=== PATIENT | male | born 1960 | race Caucasian/White ===

== ENCOUNTER → 2021-09-16 | Outpatient (CLI) | payer BC ==
[2021-09-16 18:32] LABS: Basophils # (A) 0.03 X 10*3/uL (0.00-0.10); Basophils % (A) 0.7 %; Eosinophils # (A) 0.34 X 10*3/uL (0.04-0.35); Eosinophils % (A) 7.6 %; HCT 45.4 % (39.6-50.0); HGB 15.9 g/dL (13.0-17.0); Lymphocytes # (A) 1.22 X 10*3/uL (0.90-5.00); Lymphocytes % (A) 27.2 %; MCH 32.4 pg (27.0-32.0); MCV 92.7 fL (80.0-97.0); Mean Platelet Volume 9.7 fL (9.5-12.2); Monocytes # (A) 0.54 X 10*3/uL (0.20-1.00); Neutrophils # (A) 2.35 X 10*3/uL (1.80-7.70); Neutrophils % (A) 52.3 %; Platelet Count 102 X 10*3/uL (140-440); RDW 11.9 % (11.5-14.5); WBC 4.49 X 10*3/uL (4.50-10.00)
[2021-09-16 18:41] LABS: African American GFR (CKD) 92.4 (60.0-200.0); Anion Gap 11.6 mmol/L (10.00-18.00); Calcium 9.8 mg/dL (8.7-10.3); Carbon Dioxide 26.4 mmol/L (20.0-27.5); Non-African American GFR(CKD) 79.7 (60.0-200.0); Potassium 4.4 mmol/L (3.5-5.5)
[2021-09-16 19:39] LABS: INR 0.97 (0.90-1.11)
== END | disposition home or self-care (01) ==
LOC: LABWHC1 14:05
PROVIDERS: ATTEND Orthopaedic Surgery
DX: Z01.812 Encounter for preprocedural laboratory examination (principal); M17.11 Unilateral primary osteoarthritis, right knee
CPT/HCPCS: 36415; 80048; 85025; 85610; 87070; 93005

== ENCOUNTER 2021-10-05 10:33 | Day surgery (SDC) | payer BC ==
[2021-09-30 11:29] VITALS: BMI 27.3
--- NOTE | 2021-10-04 11:46 | HP ---
HISTORY AND PHYSICAL DATE OF SURGERY: 10/05/2021 Amado Wei is a 61-year-old patient seen with symptomatic right knee osteoarthritis. We discussed options for treatment. He elected to proceed with right total knee arthroplasty. Consent was obtained. PAST MEDICAL HISTORY: Hypertension, [id number]-[id number] diabetes. PAST SURGICAL HISTORY: Noncontributory. DAILY MEDICATIONS: Hydrochlorothiazide, metformin. ALLERGIES: NONE REPORTED. SOCIAL HISTORY: He denies tobacco use. PHYSICAL EVALUATION OF THE RIGHT KNEE: His range of motion is negative 3 to 120 degrees. Tenderness, medial joint line. Crepitus, medial and patellofemoral compartments with range of motion. Pain with patellofemoral compression. Ligaments stable. Hip rotation without pain. Distal neurovascular exam is intact. Radiographs of the right knee revealed severe osteoarthritic changes. IMPRESSION: 1. Right knee osteoarthritis. 2. Hypertension. 3. Edi-bpwcnld-dckwlhnue diabetes. PLAN: Right total knee arthroplasty. MMODL / IJN: [id number] /
[~2021-10-05 10:33] MED LIST: ACETAMINOPHEN TAB 500 MG TAB PO PRN; DEXAMETHASONE SOD PHOSPHATE 4 MG/ML 1 ML VIAL IV ONE; LACTATED RINGERS 1,000 ML IV SCH; MELOXICAM 7.5 MG TAB PO PRN; MIDAZOLAM 2 MG/2 ML VIAL IV PRN; ONDANSETRON 4 MG/2 ML VIAL IVP ONE; SCOPOLAMINE 1.5MG/72HR PATCH TRANSDERM ONE; TRANEXAMIC ACID 1,000 MG in SODIUM CHLORIDE 0.9% 100 ML IVPB PRN
[2021-10-05 11:20] LABS: Glucose,Whole Blood 183 mg/dL (75-99)
[2021-10-05] MEDS ORDERED: MIDAZOLAM 2 MG/2 ML VIAL IVP ONE (11:42)
[2021-10-05] MEDS ORDERED: fentaNYL (PF) 50 MCG/ML 2 ML AMP IVP ONE (11:43)
[2021-10-05] MEDS ORDERED: ROPIVACAINE 0.2%-NS ON-Q PUMP 1,090 MG, EMPTY PAIN BALL 1 EACH MISCELLANE PRN (12:04)
[2021-10-05] MEDS ORDERED: SUCCINYLCHOLINE CHLORIDE 100 MG/5 ML SYR IV ONE (12:50)
[2021-10-05] MEDS ORDERED: HYDROmorphone (PF) 1 MG/ML ONE (12:50)
[2021-10-05] MEDS ORDERED: ROPIVACAINE 5 MG/ML 30 ML VIAL ONE (12:50)
[2021-10-05] MEDS ORDERED: fentaNYL (PF) 50 MCG/ML 2 ML AMP ONE (12:50)
[2021-10-05] MEDS ORDERED: SODIUM CHLORIDE 0.9% (PF) 10 ML VIAL ONE (12:50)
[2021-10-05] MEDS ORDERED: ROCURONIUM 10 MG/ML (5 ML VIAL) IV ONE (12:50)
[2021-10-05] MEDS ORDERED: LIDOCAINE 1% INJ 10MG/ML (20 ML MDV) ONE (12:50)
[2021-10-05] MEDS ORDERED: GLYCOPYRROLATE 0.2 MG/ML 2 ML VIAL ONE (12:50)
[2021-10-05] MEDS ORDERED: NEOSTIGMINE 1 MG/ML 10 ML VIAL ONE (12:50)
[2021-10-05] MEDS ORDERED: PROPOFOL 10 MG/ML 20 ML VIAL IV ONE (12:50)
[2021-10-05] MEDS ORDERED: MIDAZOLAM 2 MG/2 ML VIAL ONE (12:50)
[2021-10-05] MEDS ORDERED: ceFAZolin 1,000 MG in SODIUM CHLORIDE 0.9% 1,000 ML IRRIGATION ONE (13:22)
--- NOTE | 2021-10-05 13:54 | P.ANPRN ---
Procedure Note - Anesthesia - Nerve Block Performed Right Adductor Canal Time Out Performed: Yes (11:41) Date of Procedure: 10/05/21 Procedure Start Time: Procedure Stop Time: Location of Patient: PreOp Indication: Acute Post-Operative Pain, Requested by Surgeon (Dr Rivera) Sedation Type: Sedate with meaningful contact maintained Preparation: Sterile Prep, Sterile Dressing Position: Supine Catheter: Indwelling Needle Types: Pajunk Needle Gauge: 21 Ultrasound used to visualize needle placement: Yes Ultrasound used to observe medication spread: Yes Injectate: 0.5% Ropivacaine (see comment for volume) (15cc) Blood Aspirated: No Pain Paresthesia on Injection Noted: No Resistance on Injection: Normal Image Stored and Saved: Yes Events: Uneventful and Well Tolerated
--- NOTE | 2021-10-05 13:55 | P.ANPRN ---
Procedure Note - Anesthesia - Nerve Block Performed Right iPack Time Out Performed: Yes (11:53) Date of Procedure: 10/05/21 Procedure Start Time: 11:54 Procedure Stop Time: 12:03 Location of Patient: PreOp Indication: Acute Post-Operative Pain, Requested by Surgeon (Dr Rivera) Sedation Type: Sedate with meaningful contact maintained Preparation: Sterile Prep Position: Supine Catheter: None Needle Types: Pajunk Needle Gauge: 21 Ultrasound used to visualize needle placement: Yes Ultrasound used to observe medication spread: Yes Injectate: 0.5% Ropivacaine (see comment for volume) (15cc + 5cc PF Normal saline) Resistance on Injection: Normal Image Stored and Saved: Yes Events: Uneventful and Well Tolerated
[2021-10-05] MEDS ORDERED: LACTATED RINGERS 1,000 ML IV ONE ×2 (14:14→14:43)
[2021-10-05] MEDS ORDERED: HYDROmorphone 0.2 MG/1 ML SYRINGE IVP PRN ×2 (14:43)
[2021-10-05] MEDS ORDERED: ONDANSETRON 4 MG/2 ML VIAL IVP PRN (14:43)
[2021-10-05] MEDS ORDERED: NALOXONE 0.4 MG/ML 1 ML VIAL IV PRN (14:43)
[2021-10-05] MEDS ORDERED: HYDROmorphone 1 MG/ML 1 ML SYRINGE IVP PRN (14:43)
[2021-10-05] MEDS ORDERED: HYDROcodone/APAP 5-325MG 1 EACH TAB PO PRN (14:43)
[2021-10-05] MEDS ORDERED: HYDROcodone/APAP 7.5-325MG 1 EACH TAB PO PRN (14:43)
--- NOTE | 2021-10-05 14:43 | P.OP ---
Date of Procedure: 10/05/21 Preoperative Diagnosis: Right knee osteoarthritis Postoperative Diagnosis: Right knee osteoarthritis Procedure(s) Performed: Right total knee arthroplasty Implants: 1. Depuy attune size 6 right cruciate retaining cemented femur 2. Depuy attune size 6 fixed bearing cemented tibial baseplate 3. Depuy attune size 6 fixed bearing cruciate retaining 10 mm polyethylene tibial insert 4. Depuy attune 38 mm all polyethylene cemented patella Anesthesia: GETA, regional (Adductor canal catheter, Ipack block) Surgeon: Eriberto Rivera Insurance Sales Agent #1: Donte Harris Estimated Blood Loss (ml): 63 Pathology: other (Bone) Condition: stable Disposition: PACU Indications for Procedure: 61-year-old gentleman seen with symptomatic right knee osteoarthritis. After having treatment options discussed, he elected to proceed with total knee a rthroplasty. Operative Findings: See description of procedure Description of Procedure: Patient was taken to the operative suite after having an adductor canal catheter placed by the department of anesthesia. Patient underwent a general anesthetic by the department of anesthesia. Patient was given preoperative IV intake antibiotics and TXA. A well-padded tourniquet was placed about the right lower extremity. The lower extremity was then prepped and draped in the normal sterile orthopedic fashion. The extremity was elevated, a tourniquet was insufflated to 300. A standard anterior incision was made sharply through skin. Dissection was taken down through the subcutaneous soft tissues down to the extensor mechanism. A medial arthrotomy was performed, patella was everted and knee was flexed. There was advanced osteoarthritis noted. I introduced my distal intramedullary femoral drill. I then introduced the distal femoral cutting jig. Donte PICKERING secured the cutting jig with 2 pins. I held retractors in position while Donte PICKERING performed the distal femoral resection through the guide area we now removed her distal femoral cutting guide. We now placed our 4-in-1 femoral cutting block and positioned and it was secured with 2 pins by Donte PICKERING while I held the block in position. The distal femoral finishing was now completed. A proximal tibial cutting guide was positioned. I held the guide in the appropriate position with both hands while Donte PICKERING inserted stabilizing pins into the guide. Proximal tibial cut was made. We now placed a trial femoral component into position, along with an appropriate size tibial tray and insert. We now took the knee through range of motion and had full extension good flexion and good overall soft tissue balance noted. The patella was everted and stabilized with 2 towel clips held by Donte PICKERING while I performed a flush with patellar quad tendon utilizing a fresh sawblade. We templated the patella, appropriate drill holes were made. An appropriate trial patella was positioned, knee was taken through full range of motion with the patella tracking very nicely. The trial patella was removed. Drill holes were made through the femoral component. All trial components were removed after marking off the appropriate rotation of the tibia. Retractors were now positioned along the proximal tibia. An appropriate keel punch was made with the appropriate size tibial guide by myself while Donte PICKERING assisted by holding retractors. At this point appropriate size implants were chosen and opened. The joint was irrigated copiously with pulse lavage mechanical irrigation. The posterior capsule was infiltrated with local analgesic. The wound was irrigated with pulse lavage mechanical irrigation. We mixed antibiotic methylmethacrylate. We placed the knee into flexion. We placed multiple retractors assisted by Donte PICKERING to expose the proximal tibia. Once the methyl methacrylate was ready, the tibial component was cemented into place removing any excess methylmethacrylate form by both myself and Donte PICKERING. The femoral component was cemented into place removing the removing any excess methylmethacrylate performed by both myself and Donte PICKERING. We then inserted the appropriate size polyethylene tibial insert. We made sure that it was locked into position. We took the knee into full extension, and then back in a flexion making sure we had removed any excess methylmethacrylate. The patellar component was then cemented down and secured with clamp. Excess methylmethacrylate removed. We kept the knee in full extension, patellar clamp in position until methylmethacrylate had hardened. Once it had hardened the patellar clamp was removed. The knee was taken through full range of motion. The patella tracked nicely. There was good soft tissue balancing. The tourniquet was now released. Additional hemostasis was achieved via electrocautery. A second gram of TXA was given. The wound again was irrigated with pulse lavage mechanical irrigation. The superficial soft tissues were infiltrated local analgesic. The extensor mechanism was repaired with Ethibond. We checked the repair with range of motion and it was stable. The subcutaneous soft tissues were repaired with Vicryl in layers. The skin was approximated with pernio/Dermabond. Sterile dressings were applied followed by loose web roll and [place] bandage. The patient was transferred to a bed, and taken to recovery in stable and satisfactory condition. Donte PICKERING assisted with this complex procedure.
[2021-10-05] MEDS: HYDROmorphone 0.5 MG/0.5 ML SYRINGE IVP PRN ×3 (15:40→16:20)
[2021-10-05 15:42] VITALS: TEMP 97.2
--- NOTE | 2021-10-05 15:45 | XR ---
EXAMINATION TYPE: XR knee limited RT DATE OF EXAM: 10/05/2021 COMPARISON: Outside 09/09/2021 radiograph HISTORY: 61-year-old male evaluation for postoperative abnormality in alignment TECHNIQUE: 2 views FINDINGS: Images show placement of right total knee orthoplasty. Both distal femoral and proximal tibial compo nents of the prosthesis are well seated without periprosthetic fracture. Anterior soft tissue swellin g with intra-articular air and scattered soft tissue air related to recent operation. Alignment gross ly anatomic. IMPRESSION: Uncomplicated postoperative appearance right total knee arthroplasty.
[2021-10-05] MEDS ORDERED: KETOROLAC 15 MG/ML 1 ML VIAL IVP ONE (16:35)
[2021-10-05 16:46] VITALS: RESP 18
[2021-10-05 18:00] VITALS: BP 142/79; PULSE 79
== END 2021-10-05 18:08 | disposition home health service (06) ==
LOC: OR 10:33
PROVIDERS: ATTEND Orthopaedic Surgery
DX: M17.11 Unilateral primary osteoarthritis, right knee (principal)
CPT/HCPCS: 27447; 97110; 97161; 64999; 64448; 76942; 87635; 73560; C1776; C1713 ×2; J2250; J1100; J2710; J0690 ×2; J2405; J2001; J3010; J1170 ×2; J2795 ×2; J1885; J0330; J2704; 88300

== ENCOUNTER 2021-10-09 11:15 | Emergency (ER) | payer BC ==
--- NOTE | 2021-10-09 11:40 | ED ---
General Adult HPI - General Chief complaint: Extremity Problem,Nontraumatic Stated complaint: poss blood clot Time Seen by Provider: 10/09/21 11:33 Source: patient, RN notes reviewed Mode of arrival: ambulatory Limitations: no limitations - History of Present Illness Initial comments: Patient is a pleasant 61-year-old male presenting to the emergency Department with right calf discomfort. Patient did call his orthopedic surgeon who recommended they come for ultrasound. Discomfort started yesterday. Discomfort is right lateral upper calf. Patient has noticed some swelling. Patient did stop wearing his compression sock yesterday. No history of similar symptoms previously. Patient did have right knee replacement done 4 days ago. - Related Data Home Medications Medication Instructions Recorded Confirmed Enalapril [Vasotec] 20 mg PO BID 11/29/17 10/09/21 amLODIPine BESYLATE [Norvasc] 5 mg PO BID 11/29/17 10/09/21 hydroCHLOROthiazide [Hydrodiuril] 25 mg PO DAILY 11/29/17 10/09/21 Ibuprofen [Motrin Ib] 600 mg PO Q8H PRN 09/30/21 10/09/21 Turmeric/Turmeric Root Extract 1 cap PO DAILY 09/30/21 10/09/21 [Turmeric 450-50 mg Capsule] glipiZIDE [Glucotrol] 5 mg PO W/SUPPER 09/30/21 10/09/21 metFORMIN HCL [Glucophage] 500 mg PO BID 10/09/21 10/09/21 Previous Rx's Medication Instructions Recorded Aspirin [Adult Low Dose Aspirin EC] 81 mg PO BID #60 tab 10/05/21 Docusate [Colace] 100 mg PO DAILY #30 capsule 10/05/21 HYDROcodone/APAP 5-325MG [[place] 1 - 2 tab PO Q6HR PRN #36 tab 10/05/21 5-325] Allergies Allergy/AdvReac Type Severity Reaction Status Date / Time No Known Allergies Allergy Verified 10/09/21 12:40 Review of Systems ROS Statement: Those systems with pertinent positive or pertinent negative responses have been documented in the HPI. ROS Other: All systems not noted in ROS Statement are negative. Constitutional: Denies: chills Eyes: Denies: eye pain ENT: Denies: ear pain Respiratory: Denies: cough Cardiovascular: Denies: chest pain Endocrine: Denies: fatigue Gastrointestinal: Denies: abdominal pain Genitourinary: Denies: urgency Musculoskeletal: Denies: back pain Skin: Denies: lesions Neurological: Denies: weakness Past Medical History Past Medical History: Diabetes Mellitus, Hypertension Additional Past Medical History / Comment(s): "BORDERLINE" DM TYPE 2. History of Any Multi-Drug Resistant Organisms: None Reported Past Surgical History: Orthopedic Surgery Additional Past Surgical History / Comment(s): WISDOM TEETH Past Anesthesia/Blood Transfusion Reactions: No Reported Reaction Past Psychological History: No Psychological Hx Reported Smoking Status: Never smoker Past Alcohol Use History: Occasional Past Drug Use History: Marijuana - Past Family History Sister(s) Family Medical History: Cancer General Exam Limitations: no limitations General appearance: alert, in no apparent distress Head exam: Present: normocephalic Eye exam: Present: normal appearance Neck exam: Present: normal inspection Respiratory exam: Present: normal lung sounds bilaterally Cardiovascular Exam: Present: regular rate, normal rhythm GI/Abdominal exam: Present: soft. Absent: tenderness Extremities exam: Present: pedal edema (+1 bilateral), calf tenderness (Right upper lateral) Neurological exam: Present: alert Psychiatric exam: Present: normal affect, normal mood Skin exam: Present: other (Trace erythema near silver dressing covering the need) Course Vital Signs 10/09/21 11:18 Temperature 97.7 F Pulse Rate 90 Respiratory 18 Rate Blood Pressure 180/89 O2 Sat by Pulse 99 Oximetry - Reevaluation(s) Reevaluation #1: 10/09/21 11:40 Trace erythema near the wound site is consistent with postsurgical changes Medical Decision Making - Medical Decision Making Case was discussed with practitioner branch who is familiar with this patient. He recommends no and about X at this time and can follow up with patient Tuesday if symptoms continue or worsen. He recommends rest and elevation. Patient and family updated. - Radiology Data Radiology results: report reviewed (Ultrasound negative for DVT. There is fluid collection lateral to the right knee.) Disposition Clinical Impression: Right calf pain Disposition: HOME SELF-CARE Condition: Stable Instructions (If sedation given, give patient instructions): Leg Pain (ED) Additional Instructions: Please follow-up with orthopedics and primary care physician in the next couple days for recheck. Return to emergency department for fever, redness, increased pain or swelling, worsening symptoms or other concerns. If symptoms are not better orthopedics can see you on Tuesday. Is patient prescribed a controlled substance at d/c from ED?: No Referrals: Eriberto Rivera DO [Doctor of Osteopathic Medicine] - 1-2 days Tiburcio Ann MD [STAFF PHYSICIAN] - 1-2 days Time of Disposition: 13:00
--- NOTE | 2021-10-09 12:23 | US ---
EXAMINATION TYPE: US venous doppler duplex LE RT DATE OF EXAM: 10/09/2021 12:12 PM COMPARISON: NONE CLINICAL HISTORY: swelling. EC patient with right knee and lower leg swelling post right knee replace ment 5 days ago. SIDE PERFORMED: Right TECHNIQUE: The lower extremity deep venous system is examined utilizing real time linear array sonog angel with graded compression, doppler sonography and color-flow sonography. VESSELS IMAGED: Common Femoral Vein Deep Femoral Vein Greater Saphenous Vein * Femoral Vein Popliteal Vein Small Saphenous Vein * Proximal Calf Veins (* superficial vessels) Right Leg: Negative for DVT. Edema channels are seen right medial leg from knee to ankle. Lateral to right knee a complex fluid collection is also noted = 4.7 x 2.0 x 0.9cm. IMPRESSION: 1. No diagnostic evidence of DVT. 2. There is a complex fluid collection measuring 4.7 cm lateral to the right. Correlate clinically. C orrelate with MRI as clinically warranted.
[2021-10-09 13:10] VITALS: BP 128/78; PULSE 78; RESP 16; TEMP 98.2
== END 2021-10-09 13:09 | disposition home or self-care (01) ==
LOC: EC 11:15
DX: M79.604 Pain in right leg (principal); E11.9 Type 2 diabetes mellitus without complications; I10 Essential (primary) hypertension; F12.90 Cannabis use, unspecified, uncomplicated; Z79.84 Long term (current) use of oral hypoglycemic drugs; Z79.82 Long term (current) use of aspirin
CPT/HCPCS: 99283

== ENCOUNTER 2023-11-21 08:13 | Emergency (ER) | payer MEDICARE ==
[2023-11-21 09:06] VITALS: TEMP 99.3
--- NOTE | 2023-11-21 09:12 | XR ---
EXAMINATION TYPE: XR chest 2V DATE OF EXAM: 11/21/2023 8:57 AM CLINICAL INDICATION:Male, 63 years old with history of cough COMPARISON: Chest radiographs from 11/21/2023 TECHNIQUE: XR chest 2V Frontal and lateral views of the chest. FINDINGS: Lungs/Pleura: There is no evidence of pleural effusion, focal consolidation, or pneumothorax. Pulmonary vascularity: Unremarkable. Heart/mediastinum: Cardiomediastinal silhouette is unremarkable. Musculoskeletal: No acute osseous pathology. Other findings: None IMPRESSION: No acute cardiopulmonary disease/process.
--- NOTE | 2023-11-21 09:21 | ED ---
Headache HPI - General Chief Complaint: Headache Stated Complaint: Headache Time Seen by Provider: 11/21/23 08:31 Source: RN notes reviewed Mode of arrival: ambulatory Limitations: no limitations - History of Present Illness Initial Comments: 63-year-old male presents emergency department chief complaint of sinus congestion, cough, headache, body aches. Patient states that started on Tuesday was seen in urgent care was given steroid shot, Augmentin. Patient states he had no testing. Patient states that he initially felt better after the steroid but that has worn off and states he feels sick again. Patient denies any sick contacts reports possible fever sweats chills. No GI symptoms. - Related Data Home Medications Medication Instructions Recorded Confirmed Enalapril [Vasotec] 20 mg PO BID 11/29/17 10/09/21 amLODIPine BESYLATE [Norvasc] 5 mg PO BID 11/29/17 10/09/21 hydroCHLOROthiazide [Hydrodiuril] 25 mg PO DAILY 11/29/17 10/09/21 Ibuprofen [Motrin Ib] 600 mg PO Q8H PRN 09/30/21 10/09/21 Turmeric/Turmeric Root Extract 1 cap PO DAILY 09/30/21 10/09/21 [Turmeric 450-50 mg Capsule] glipiZIDE [Glucotrol] 5 mg PO W/SUPPER 09/30/21 10/09/21 metFORMIN HCL [Glucophage] 500 mg PO BID 10/09/21 10/09/21 Previous Rx's Medication Instructions Recorded Aspirin [Adult Low Dose Aspirin EC] 81 mg PO BID #60 tab 10/05/21 Docusate [Colace] 100 mg PO DAILY #30 capsule 10/05/21 HYDROcodone/APAP 5-325MG [[place] 1 - 2 tab PO Q6HR PRN #36 tab 10/05/21 5-325] Allergies Allergy/AdvReac Type Severity Reaction Status Date / Time No Known Allergies Allergy Verified 10/09/21 12:40 Review of Systems ROS Statement: Those systems with pertinent positive or pertinent negative responses have been documented in the HPI. ROS Other: All systems not noted in ROS Statement are negative. Past Medical History Past Medical History: Diabetes Mellitus, Hypertension Additional Past Medical History / Comment(s): "BORDERLINE" DM TYPE 2. History of Any Multi-Drug Resistant Organisms: None Reported Past Surgical History: Orthopedic Surgery Additional Past Surgical History / Comment(s): WISDOM TEETH Past Anesthesia/Blood Transfusion Reactions: No Reported Reaction Past Psychological History: No Psychological Hx Reported Smoking Status: Never smoker Past Alcohol Use History: Occasional Past Drug Use History: Marijuana - Past Family History Sister(s) Family Medical History: Cancer General Exam Limitations: no limitations General appearance: alert, in no apparent distress Head exam: Present: atraumatic, normocephalic, normal inspection Eye exam: Present: normal appearance, PERRL, EOMI. Absent: scleral icterus, conjunctival injection, periorbital swelling ENT exam: Present: normal exam, normal oropharynx, mucous membranes moist Neck exam: Present: normal inspection, full ROM. Absent: tenderness, meningismus, lymphadenopathy Respiratory exam: Present: normal lung sounds bilaterally. Absent: respiratory distress, wheezes, rales, rhonchi, stridor Cardiovascular Exam: Present: regular rate, normal rhythm, normal heart sounds. Absent: systolic murmur, diastolic murmur, rubs, gallop, clicks GI/Abdominal exam: Present: soft, normal bowel sounds. Absent: distended, tenderness, guarding, rebound, rigid Course Vital Signs 11/21/23 11/21/23 08:22 09:57 Temperature 99.3 F Pulse Rate 71 60 Respiratory 16 18 Rate Blood Pressure 163/75 124/64 O2 Sat by Pulse 96 99 Oximetry Medical Decision Making - Medical Decision Making Was pt. sent in by a medical professional or institution (, PA, RIP MACHINE OPERATOR, urgent care, hospital, or long-term...) When possible be specific @ -No Did you speak to anyone other than the patient for history (EMS, parent, family, police, friend...)? What history was obtained from this source @ -No Did you review nursing and triage notes (agree or disagree)? Why? @ -I reviewed and agree with nursing and triage notes Were old charts reviewed (outside hosp., previous admission, EMS record, old EKG, old radiological studies, urgent care reports/EKG's, long-term records)? Report findings @ -No old charts were reviewed Differential Diagnosis (chest pain, altered mental status, abdominal pain women, abdominal pain men, vaginal bleeding, weakness, fever, dyspnea, syncope, headache, dizziness, GI bleed, back pain, seizure, CVA, palpatations, mental health, musculoskeletal)? @ -COVID 19, RSV, influenza, pneumonia, acute bronchitis, URI, this list is not all inclusive EKG interpreted by me (3pts min.). @ -None X-rays interpreted by me (1pt min.). @ -Chest x-ray shows no evidence of pneumonia or acute process CT interpreted by me (1pt min.). @ -None done U/S interpreted by me (1pt. min.). @ -None done What testing was considered but not performed or refused? (CT, X-rays, U/S, labs)? Why? @ -None What meds were considered but not given or refused? Why? @ -None Did you discuss the management of the patient with other professionals ( professionals i.e. , PA, RIP MACHINE OPERATOR, lab, RT, psych nurse, social media job titles, dining room attendant cafeteria, teacher, records officer, case filler)? Give summary @ -No Was smoking cessation discussed for >3mins.? @ -No Was critical care preformed (if so, how long)? @ -No Were there social determinants of health that impacted care today? How? (Homelessness, low income, unemployed, alcoholism, drug addiction, transportation, low edu. Level, literacy, decrease access to med. care, fci, rehab)? @ -No Was there de-escalation of care discussed even if they declined (Discuss DNR or withdrawal of care, Hospice)? DNR status @ -No What co-morbidities impacted this encounter? (DM, HTN, Smoking, COPD, CAD, Cancer, CVA, ARF, Chemo, Hep., AIDS, mental health diagnosis, sleep apnea, morbid obesity)? @ -None Was patient admitted / discharged? Hospital course, mention meds given and route, prescriptions, significant lab abnormalities, going to OR and other pertinent info. @ -Did charge patient's influenza be positive patient has had symptoms for 5 days will be discharged in stable condition with supportive treatment Undiagnosed new problem with uncertain prognosis? @ -No Drug Therapy requiring intensive monitoring for toxicity (Heparin, Nitro, Insulin, Cardizem)? @ -No Were any procedures done? @ -No Diagnosis/symptom? @ -Influenza B Acute, or Chronic, or Acute on Chronic? @ -Acute Uncomplicated (without systemic symptoms) or Complicated (systemic symptoms)? @ -Uncomplicated Side effects of treatment? @ -No Exacerbation, Progression, or Severe Exacerbation? @ -No Poses a threat to life or bodily function? How? (Chest pain, [place], [place], pneumonia, PE, COPD, DKA, ARF, appy, cholecystitis, CVA, Diverticulitis, Homicidal, Suicidal, threat to staff... and all critical care pts) @ -No - Lab Data Lab Results 11/21/23 Range/Units 08:37 Influenza Type A (PCR) Not Detected (Not Detectd) Influenza Type B (PCR) Detected A (Not Detectd) RSV (PCR) Not Detected (Not Detectd) SARS-CoV-2 (PCR) Not Detected (Not Detectd) Disposition Clinical Impression: Influenza A Disposition: HOME SELF-CARE Condition: Stable Instructions (If sedation given, give patient instructions): Influenza (ED) Additional Instructions: Please return to the Emergency Department if symptoms worsen or any other concerns. Is patient prescribed a controlled substance at d/c from ED?: No Referrals: Carl Israel MD [Primary Care Provider] - 1-2 days Time of Disposition: 09:48
[2023-11-21 10:33] VITALS: BP 124/64; PULSE 60; RESP 18
== END 2023-11-21 10:00 | disposition home or self-care (01) ==
LOC: EC 08:13
DX: R51.9 Headache, unspecified (principal); J10.1 Influenza due to other identified influenza virus with other respiratory manifestations; F12.90 Cannabis use, unspecified, uncomplicated
CPT/HCPCS: 71046; 87636; 99284

== ENCOUNTER 2023-12-09 13:14 | Day surgery (SDC) | payer MEDICARE ==
[2023-12-09] MEDS: LACTATED RINGERS 1,000 ML IV ONE (14:30)
[2023-12-09 14:47] LABS: Glucose,Whole Blood 113 mg/dL (70-110)
[2023-12-09 15:02] VITALS: TEMP 97.5
[2023-12-09] MEDS ORDERED: LIDOCAINE 2% (PF) 20 MG/ML 5 ML VIAL ONE (15:27)
[2023-12-09] MEDS ORDERED: PROPOFOL 10 MG/ML 20 ML VIAL IV ONE (15:27)
--- NOTE | 2023-12-09 16:16 | P.PCN ---
Date of Procedure: 12/09/23 Procedure(s) Performed: BRIEF HISTORY: Patient is a 63-year-old pleasant white male scheduled for an elective colonoscopy as a part of screening for colon cancer. PROCEDURE PERFORMED: Colonoscopy with biopsy. PREOPERATIVE DIAGNOSIS: Screening for colon cancer IV sedation per Anesthesia. PROCEDURE: After informed consent was obtained, the patient, was brought into the endoscopy unit. IV sedation was administered by Anesthesia under continuous monitoring. Digital rectal examination was normal. Initially the Olympus CF-160 flexible video colonoscope was then inserted in the rectum, gradually advanced into the cecum without any difficulty. Careful examination was performed as the scope was gradually being withdrawn. Ileocecal valve and the appendiceal orifice were visualized and appeared normal. Prep was Fair.. Mucosa of the cecum,has 3 mm polyp that was removed by cold biopsy. In the ascending colon there was a 2 mm and 5 mm polyp that was removed by cold biopsy. Rest of the ascending colon, transverse colon, descending colon, sigmoid colon, and rectum appeared normal. proximal rectum there was another 5 mm polyp that was removed by cold biopsy.Retroflexion was performed in the rectum and no lesions were seen. The patient tolerated the procedure well. IMPRESSION: 3 mm cecal polyp status post cold biopsy 5 mm and 4 mm ascending colon polyp status post cold biopsy 5 mm rectal polyp status post cold biopsy RECOMMENDATIONS: Findings of this examination were discussed with the patient As well as his family.he was advised to follow with the biopsy results. If the biopsy result adenoma he can have a repeat colonoscopy in 3 years.
[2023-12-09 16:21] LABS: Glucose,Whole Blood 103 mg/dL (70-110)
[2023-12-09 16:25] VITALS: BP 121/64; PULSE 60; RESP 16
== END 2023-12-09 16:22 ==
LOC: ORWHC2ENDO 13:14
PROVIDERS: ATTEND Internal Medicine Gastroenterology
DX: Z12.11 Encounter for screening for malignant neoplasm of colon (principal); D12.2 Benign neoplasm of ascending colon; D12.0 Benign neoplasm of cecum; K62.1 Rectal polyp; I10 Essential (primary) hypertension; E11.9 Type 2 diabetes mellitus without complications; K21.9 Gastro-esophageal reflux disease without esophagitis; Z79.84 Long term (current) use of oral hypoglycemic drugs; Z79.899 Other long term (current) drug therapy; Z98.890 Other specified postprocedural states; Z79.82 Long term (current) use of aspirin
CPT/HCPCS: 88305; 45380; J2704; J2001